=== PATIENT | female | born 1985 | race Caucasian/White ===

== ENCOUNTER 2016-04-30 17:42 | Inpatient (IN) | payer MEDICAID ==
[~2016-04-30] VITALS: Ht 165.1 cm; Wt 106.6 kg
[~2016-04-30 17:42] MED LIST: XANAX2 MG PO
[2016-04-30 18:47] LABS: BASOPHILS 0.4 % (0.0-2.0); EOSINOPHILS 1.6 % (0-7); HEMATOCRIT 38.2 % (36.0-48.0); IMMATURE GRANULOCYTES 0.5 % (0-5); LYMPHOCYTES 28.4 % (15-50); MCH 29.9 pg (26.0-34.0); MCHC 31.4 g/dL (31.0-37.0); MCV 95.3 fL (80.0-100.0); MEAN PLATELET VOLUME 10.1 fL (7.4-10.4); MONOCYTES 7.1 % (2-11); PLATELET COUNT 378 10x3/uL (130-400); RBC 4.01 10x6/uL (4.00-5.40); RDW 14.8 % (11.5-14.5)
[2016-04-30 19:01] LABS: APPEARANCE CLEAR (CLEAR); BILIRUBIN NEGATIVE (NEGATIVE); COLOR YELLOW (YELLOW); GLUCOSE NEGATIVE (NEGATIVE); KETONE NEGATIVE (NEGATIVE); LEUKOCYTE ESTERASE TRACE (NEGATIVE); NITRITE NEGATIVE (NEGATIVE); PROTEIN TRACE mg/dL (NEGATIVE); SPECIFIC GRAVITY 1.015 (1.005-1.020)
[2016-04-30 19:03] LABS: BACTERIA NONE SEEN /hpf (NONE SEEN); EPITHELIAL CELLS 0-5 /hpf (0-5); HCG URINE NEGATIVE (NEGATIVE); MUCUS <1+ /lpf (NONE SEEN); RED CELLS - URINE 0-5 /hpf (0-5); WHITE CELLS - URINE 0-5 /hpf (0-5)
[2016-04-30 19:31] LABS: ALBUMIN 4.1 g/dL (3.4-5.0); ALKALINE PHOSPHATASE 124 U/L (46-116); ALT (SGPT) 928 U/L (10-68); AMYLASE - SERUM 33 U/L (25-115); BILIRUBIN - TOTAL 0.71 mg/dL (0.2-1.3); CALC OSMOLALITY 282 mosm/kg (275-300); CALCIUM 9.7 mg/dL (8.5-10.1); CARBON DIOXIDE 28.8 mmol/L (21.0-32.0); CHLORIDE - SERUM 102 mmol/L (98-107); CREATININE - SERUM 0.6 mg/dL (0.6-1.3); GLUCOSE 115 mg/dL (74-106); LIPASE 121 U/L (73-393); POTASSIUM - SERUM 4.1 mmol/L (3.5-5.1); PROTEIN - SERUM 7.9 g/dL (6.4-8.2); SODIUM 142 mmol/L (136-145); UREA NITROGEN 11 mg/dL (7-18); eGFR NON AFRICAN AMERICAN > 90 mL/min (90-120)
--- NOTE | 2016-04-30 22:49 | NUR ---
RECEIVED TO ROOM 2135VIA W/C FROM ER ALERT AND ORIENTED 30 Y/O FEMALE SEEN BY DR RATLIFF WITH DX OFCOMMON DUCT STONE, CHOLELITHIS. RESP UNLAB ON ROOM AIR, NS @ 100CC/HR VIA PUMP TO LEFT HAND WITH NO R/S NOTED AT SITE. UP AD LESLIE W/O DIFF. VS OBTAINED, WNL. AT BEDSIDE FOR NIGHT. HOB UP SR UP X2, C/L IN REACH. COENTINUE TO MONITOR.
[2016-05-01] VITALS (7 sets, daily range): BP systolic 116–140; BP diastolic 50–82; Ht 165.1 cm; Wt 106.6 kg
[2016-05-01] MEDS ORDERED: AMBIEN10 MG PO (00:04)
[2016-05-01] MEDS ORDERED: NORVASC5 MG PO (00:05)
[2016-05-01] MEDS ORDERED: EFFEXOR75 MG PO (00:06)
--- NOTE | 2016-05-01 01:33 | NUR ---
NPO PER ORDERS, BEAUTY SHOP MANAGER DILADID AT BEDSIDE FOR PAIN CONTROL. C/L IN REACH. CONTINUE TO MONITOR.
--- NOTE | 2016-05-01 03:00 | NUR ---
AWAKE, QUIET IN BED, STATING "I DONT HURT ANY MORE". C/L IN REACH.
[2016-05-01 06:28] LABS: BASOPHILS 0.4 % (0.0-2.0); EOSINOPHILS 0.4 % (0-7); HEMATOCRIT 35.5 % (36.0-48.0); IMMATURE GRANULOCYTES 0.3 % (0-5); MCH 29.6 pg (26.0-34.0); MCV 95.7 fL (80.0-100.0); MEAN PLATELET VOLUME 10.3 fL (7.4-10.4); MONOCYTES 9.4 % (2-11); NEUTROPHILS 62.5 % (40-80); PLATELET COUNT 352 10x3/uL (130-400); RBC 3.71 10x6/uL (4.00-5.40); RDW 14.9 % (11.5-14.5)
[2016-05-01 06:43] LABS: WBC 6.8 10x3/uL (4.8-10.8)
[2016-05-01 07:03] LABS: CALC OSMOLALITY 285 mosm/kg (275-300); CARBON DIOXIDE 28.7 mmol/L (21.0-32.0); CHLORIDE - SERUM 105 mmol/L (98-107); CHOL - HDL RATIO 5.5 ratio (2.3-4.1); CHOLESTEROL, TOTAL 220 mg/dL (0-200); CREATININE - SERUM 0.7 mg/dL (0.6-1.3); GLUCOSE 139 mg/dL (74-106); HDL CHOLESTEROL 40 mg/dL (32-96); LDL CHOLESTEROL 159 mg/dL (0-100); POTASSIUM - SERUM 4.4 mmol/L (3.5-5.1); SODIUM 143 mmol/L (136-145); TRIGLYCERIDE 106 mg/dL (30-200); UREA NITROGEN 9 mg/dL (7-18); eGFR NON AFRICAN AMERICAN > 90 mL/min (90-120)
--- NOTE | 2016-05-01 07:20 | NUR ---
LAYING IN BED WITH MALE MEMBER IN BED WITH HER. DENIES NEEDS AT PRESENT TIME. NPO STATUS, THIS IS RE-INFORCED. STATES TO UNDERSTAING OF THIS. IV OF D5NS INFUSING TO LEF THAND AT 100 CC/HR ALONG WITH BAR USEFUL OR BUSSER DILAUDID WITH SETTINGS 0.2/01/24. WILL CONTINUE TO MONITOR.
--- NOTE | 2016-05-01 08:55 | NUR ---
PATIENT UP TO SINK FOR AM CARE. STILL NPO STATUS, MEDS GIVEN WITH SIP OF WATER. PATIENT REPORTS THAT SHE IS HAVING SURGRY TODAY, INFORMED HER THAT AT THIS PRESENT TIME WE DO NOT HAVE ORDERS BUT THAT IT MAY CHANGE SOON. WILL CONTINUE TO MONITOR.
--- NOTE | 2016-05-01 09:37 | NUR ---
PATIENT IS NOW ON EP, LAB VALUES ARE NORMAL.
--- NOTE | 2016-05-01 11:04 | NUR ---
TO RADIOLOGY VIA WHEELCHAIR FOR GALLBLADDER SCAN. UA SENT FOR UDS ORDERED.
[2016-05-01 11:22] LABS: APTT 27.8 SECONDS (22.8-39.4); INR 0.98 (0.85-1.17); PROTIME 12.8 SECONDS (11.6-15.0)
[2016-05-01 11:31] LABS: ALBUMIN 3.5 g/dL (3.4-5.0); BILIRUBIN - DIRECT 0.56 mg/dL (0.00-0.30); BILIRUBIN - INDIRECT 0.44 mg/dL (0.00-1.00); PROTEIN - SERUM 7.3 g/dL (6.4-8.2)
[2016-05-01 11:50] LABS: UDS - AMPHET NEGATIVE QUAL (NEGATIVE); UDS - BARB NEGATIVE QUAL (NEGATIVE); UDS - BENZO NEGATIVE QUAL (NEGATIVE); UDS - COCAINE NEGATIVE QUAL (NEGATIVE); UDS - METH NEGATIVE QUAL (NEGATIVE); UDS - OPIATE POSITIVE QUAL (NEGATIVE); UDS - PCP NEGATIVE QUAL (NEGATIVE); UDS - THC NEGATIVE QUAL (NEGATIVE)
--- NOTE | 2016-05-01 13:29 | NUR ---
REMOVING SUTURES TO BILATERAL LULA DRAINS, REMOVED ORDERED. COVERED WITH CLEAN 4 X 4, AND TAPE. TOLERATED WELL.
--- NOTE | 2016-05-01 14:14 | NUR ---
OP PERMITS ARE SIGNED AND SURGICAL BATH AND LINEN CHANGE DONE. STILL NPO. HERE AT BEDSIDE.
--- NOTE | 2016-05-01 14:25 | NUR ---
RATIONALE FOR SCD'S EXPLAINED. REFUSED SCD'S
--- NOTE | 2016-05-01 14:30 | NUR ---
CALLED TO ROOM PATIENT WAS THROWING UP AND STARTING TO ITCH ON ABDOMINAL AREA AND IN PELVIS/GROIN. NO RASH IS SEEN. CALL PLACED TO DR CLARK IN SURGERY FOR ORDER OF LORIEL.
--- NOTE | 2016-05-01 15:23 | NUR ---
TO OR VIA BED.
--- NOTE | 2016-05-01 16:48 | CN ---
PATIENT NAME:MAX AN MEDICAL RECORD: [id number] : 89 LOCATION:D. D.2136 ADMIT DATE: 04/30/16 ACCOUNT: [id number] CONSULTING PHYSICIAN: LING CLARK MD REFERRING PHYSICIAN: RAUL RATLIFF MD DATE OF CONSULTATION: 05/01/2016 Surgical Consultation SURGEON: Ling Clark MD REASON FOR CONSULTATION: Right upper quadrant pain. HISTORY OF PRESENT ILLNESS: This is a 30-year-old female who was in the hospital yesterday for acute onset of right upper quadrant epigastric pain 2 days ago. The patient states the pain has been constant since it started. She describes it as sharp and stabbing. It radiates around to the center point of her back. It was associated with nausea. She denies any episodes of vomiting, fever, chills at home. Denies any episodes of hematuria, dysuria or change in color of her stool or urine. She says she never had the previous attacks or similar episodes of right upper quadrant pain. PAST MEDICAL HISTORY: Obesity, hypertension, pituitary adenoma and polysubstance drug abuse. PAST SURGICAL HISTORY: None. FAMILY HISTORY: Father at the age of 50 from a heart attack. Mother had ovarian cancer and ulcerative colitis. ALLERGIES: PENICILLIN. HOME MEDICATIONS: Effexor, Norvasc, Ambien. SOCIAL HISTORY: , no children. Smokes half a pack of cigarettes daily. REVIEW OF SYSTEMS: A 12-point review of systems was obtained. Pertinent positives and negatives as per the HPI. PHYSICAL EXAMINATION: VITAL SIGNS: Temperature 98.4, heart rate 61, respiratory rate 18, blood pressure 140/80, satting 95% on room air. GENERAL: This is a well-developed and well-nourished obese female in moderate distress. PSYCHIATRIC: She is alert and oriented times 3. EYES: Extraocular muscles are intact. EAR, NOSE AND THROAT: Mucous membranes are dry. She has got poor dentition. CARDIOVASCULAR: Normal sinus rhythm. LUNGS: She is clear to auscultation bilaterally. ABDOMEN: Soft, nondistended, she has got moderate right upper quadrant tenderness to palpation, localized guarding. Normoactive bowel sounds. EXTREMITIES: She is neurovascularly intact with normal cap refill. SKIN: Warm and dry with normal turgor. NEUROLOGIC: She has a GCS of 15 with no focal deficits. CONSULT REPORT [id number] MAX AN LABORATORY DATA: White count 6800, hemoglobin 11, hematocrit 35.5, platelet count 352. Chemistry: Sodium 143, potassium 3.4, chloride 105, carbon dioxide is 28.7, BUN 9, creatinine 0.7, glucose 139. Calcium 9. Bilirubin 1, direct bilirubin 0.56. AST 717, ALT 1125. IMAGING: Her CT of the abdomen and pelvis was personally reviewed. She has got a dilated common bile duct and markedly contracted gallbladder. I ordered an MRCP earlier this morning, which the images were also reviewed, which shows an enlarged common bile duct with no obvious obstruction. No stones. IMPRESSION: A 30-year-old female with chronic cholecystitis and cholelithiasis. PLAN: 1. The patient has been admitted to the medicine floor. Continue IV fluid resuscitation. 2. Continue IV narcotics for pain control. 3. Start IV antibiotics. 4. Obtain consent for laparoscopic cholecystectomy. Risks and benefits of the procedure were discussed with the patient. 5. OR later today for laparoscopic cholecystectomy. TRANSINT:[id number] Voice Confirmation ID: [id number] DOCUMENT ID: [id number] LING CLARK MD at 1648 CC: [id number] DICTATION DATE: 05/01/161427 HOGSHEAD STRIPPER: 05/01/16 1451 ADM IN [facility] [address] [id number]
--- NOTE | 2016-05-01 17:41 | NUR ---
1740-RETURNS FROM RECOVERY ROOM WITH 4 SMALL INCISIONS WITH STERI-STRIPS SEEN. ON 4L PER NC. WILL MONITOR.
--- NOTE | 2016-05-01 20:08 | NUR ---
RECEIVED REPORT, ASSIST TO RESTROOM, 02-3L, LFA-D5NS @ 100, AT BEDSIDE, CALL LIGHT IN REACH,
[2016-05-02] VITALS: BP 130/83
[2016-05-02 04:00] VITALS: BP 120/76
--- NOTE | 2016-05-02 04:50 | NUR ---
PT LAYING IN BED NO DISTRESS OBSERVED CALL LIGHT IN REACH SRX2 BED LOW AND LOKCED WILL MONITOR
--- NOTE | 2016-05-02 04:57 | NUR ---
SLEEPING, AT BEDSIDE, CALL LIGHT IN REACH, BED IS LOW,SRX2
[2016-05-02 06:18] LABS: BASOPHILS 0.2 % (0.0-2.0); EOSINOPHILS 0.1 % (0-7); HEMATOCRIT 38.3 % (36.0-48.0); HEMOGLOBIN 11.7 g/dL (12-16); IMMATURE GRANULOCYTES 0.5 % (0-5); LYMPHOCYTES 23.9 % (15-50); MCH 29.1 pg (26.0-34.0); MCHC 30.5 g/dL (31.0-37.0); MCV 95.3 fL (80.0-100.0); MEAN PLATELET VOLUME 10.4 fL (7.4-10.4); MONOCYTES 9.5 % (2-11); NEUTROPHILS 65.8 % (40-80); PLATELET COUNT 314 10x3/uL (130-400); RBC 4.02 10x6/uL (4.00-5.40); RDW 14.9 % (11.5-14.5); WBC 8.1 10x3/uL (4.8-10.8)
[2016-05-02 06:43] LABS: ALBUMIN 3.6 g/dL (3.4-5.0); ALKALINE PHOSPHATASE 123 U/L (46-116); CALCIUM 9.2 mg/dL (8.5-10.1); CARBON DIOXIDE 30.8 mmol/L (21.0-32.0); CHLORIDE - SERUM 102 mmol/L (98-107); CREATININE - SERUM 0.8 mg/dL (0.6-1.3); GLUCOSE 108 mg/dL (74-106); POTASSIUM - SERUM 4.3 mmol/L (3.5-5.1); PROTEIN - SERUM 7.2 g/dL (6.4-8.2); SODIUM 142 mmol/L (136-145); eGFR NON AFRICAN AMERICAN 90 mL/min (90-120)
[2016-05-02 06:45] LABS: ALT (SGPT) 1118 U/L (10-68); CALC OSMOLALITY 281 mosm/kg (275-300); UREA NITROGEN 6 mg/dL (7-18)
--- NOTE | 2016-05-02 07:30 | NUR ---
0700-LAYING IN BED WITH SPOUSE DURING SHIFT CHANGE. DENIES NEEDS AT PRESENT TIME, STATES TO AMBULATING HALLWAY LAST SHIFT. PASSING FLATUS BUT NO BM AT PRESENT TIME. IV INFUSING TO HAND OF D 5 1/2 NS AT 125 CC/HR. PATIENT REPORTS TO DRINKING FLUIDS LAST NIGHT. ON ROOM AIR. WILL CONTINUE TO MONITOR.
--- NOTE | 2016-05-02 07:50 | NUR ---
PCT MAKING VITAL ROUNDS THIS AM. REPORTS TO ME THAT HER 02 LEVEL IS 85 ON ROOM AIR AND REFUSES TO WEAR OXYGEN. I WENT IN AND ASKED PATIENT TO PLEASE COUGH AND DEEP BREATH, USING THE SPLINTING EFFECT WITH BRACING HER STOMACH WHEN SHE COUGHS. IS IN THE BED WITH HER STILL. I INFORMED THE PATIENT THAT IF IT DIDN'T COME UP IN JUST A BIT THAT WE WILL HAVE TO PLACE 02 BACK ON HER FOR A BIT. WILL CONTINUE TO MONITOR.
[2016-05-02 08:07] VITALS: BP 119/79
--- NOTE | 2016-05-02 08:14 | OP ---
PATIENT NAME: MAX AN MEDICAL RECORD: [id number] :[birth year] LOCATION:D. D.2136 ADMISSION DATE:04/30/16 SURGEON: LING CLARK MD DATE OF OPERATION: 05/01/2016 SURGEON: Ling Clark MD PREOPERATIVE DIAGNOSIS: Chronic cholecystitis. POSTOPERATIVE DIAGNOSIS: Chronic cholecystitis. PROCEDURE PERFORMED: Laparoscopic cholecystectomy. ANESTHESIA: General. COMPLICATIONS: None. SPECIMENS: Gallbladder. Case is clean contaminated. ESTIMATED BLOOD LOSS: 40 cc. OPERATIVE COURSE: After consent was obtained, the patient was taken to the operating room and placed in the supine position on the operating table. Next, general anesthesia was given via endotracheal intubation after a timeout was performed to confirm the correct patient and procedure. The abdomen was then prepped and draped in typical sterile fashion. Local anesthetic was injected just above the umbilicus. A stab incision was made with 11-blade scalpel. Using a 5-mm bladeless optical trocar, the abdomen was entered under direct laparoscopic vision. Adequate pneumoperitoneum was achieved. The abdominal cavity was inspected. No evidence of bowel injury. No evidence of bleeding. The patient was then placed in the steep reverse Trendelenburg position. All remaining trocars were placed after the administration of local anesthetic, two 5-mm trocars in the right upper quadrant and 11-mm trocar in the subxiphoid position. The fundus of the gallbladder was grasped and retracted cephalad. The infundibulum was grasped and retracted laterally. The peritoneum was incised using electrocautery. Blunt dissection was then performed until the critical view was obtained. The cystic duct lateral, cystic artery medial, liver in a posterior window. Two clips were placed in the proximal cystic artery. Three clips were then placed in the proximal cystic duct, 1 clip distal. The duct and artery were transected with laparoscopic Metzenbaum scissors. The remaining portion of the gallbladder was taken from the liver bed using electrocautery. Once complete, it was grasped with the tenaculum and removed through the 11-mm trocar and sent for permanent pathology. The operative site was copiously irrigated and suctioned. Careful attention was paid to hemostasis, which was obtained from the liver bed with electrocautery. The operative site was inspected. There were [address] in the cystic duct, 2 clips were placed in the cystic artery. There was no evidence of bowel injury. No evidence of bleeding, no evidence of bile leak. The abdominal cavity was inspected. No evidence of bowel injury. No evidence of bleeding. At this time, all remaining instruments were removed. The abdomen was desufflated. Trocars were removed. Skin was closed with 4-0 Monocryl, Mastisol and Steri-Strips. At the end of the case, all needle and instrument counts were correct. No complications occurred. The patient was extubated and transferred OPERATIVE REPORT [id number] MAX AN to the PACU in stable condition. TRANSINT:[id number] Voice Confirmation ID: [id number] DOCUMENT ID: [id number] LING CLARK MD at 0814 CC: [id number] DICTATION DATE: 05/01/16 165 EDUCATIONAL CONSULTANT: 05/01/16 1908 ADM IN [facility] [address] [place] [address]
[2016-05-02] MEDS ORDERED: HYDROCODON-ACE1 EAC7 PO (08:31)
[2016-05-02 09:18] LABS: HEPATITIS C ANTIBODY <0.1 (0.0-0.9)
--- NOTE | 2016-05-02 09:38 | NUR ---
PATIENT BEEN UP AMBULATING IN HALLWAY WITH . TORADOL GIVEN SLOW IVP FOR PAIN REQUESTED. DULCOLOX SUPP ALSO GIVEN, INSTRUCTED TO HOLD LONG POSSIBLE AND TO CALL ME IF ANY RESULTS. STATES TO UNDERSTANDING.
--- NOTE | 2016-05-02 12:07 | NUR ---
PATIENT HAD SCANT AMOUNT OF STOOL.
[2016-05-02 12:14] VITALS: BP 136/80
--- NOTE | 2016-05-02 12:44 | NUR ---
SALINE LOCK REMOVED WITH CATH TIP INTACT. VERBAL AND WRITTEN DISCHARGE INSTRUCITONS GIVEN TO PATIENT AND SPOUSE. DISCHARGED HOME VIA WHEELCHAIR.
--- NOTE | 2016-05-02 14:22 | NUR ---
Patient Name: MAX AN Admission Status: ER Accout number: [id number] Admission Date: 04-30-2016 : 1985 Admission Diagnosis:CHOLECYSTITIS, UNSPECIFIED Attending: SEBASTIEN Current LOS: 2 Anticipated DC Date: 05-02-2016 Planned Disposition: Home Primary Insurance: MEDICAID [place] Discharge Planning Comments: * Is the patient Alert and Oriented? Yes 0 * How many steps to enter\exit or inside your home? 20 0 * PCP DR. LUCAS 0 * Pharmacy [facility] 0 * Preadmission Environment Home with Family 0 * ADLs Independent 0 * Equipment None 0 * Other Equipment NO MEDICAL EQUIPMENT PROVIDER PREFERENCE 0 * List name and contact numbers for known caregivers / representatives who currently or will assist patient after discharge: LETTY VALENCIA, SPOUSE, 0 * Community resources currently utilized None 0 * Please name any agencies selected above. NONE 0 * Additional services required to return to the preadmission environment? No 0 * Can the patient safely return to the preadmission environment? Yes 0 * Has this patient been hospitalized within the prior 30 days at any hospital? No 0 CM MET WITH PT IN ROOM TO DISCUSS DISCHARGE PLANNING AND NEEDS. PT REPORTS LIVING AT HOME INDEPENDENTLY WITH SPOUSE. PT HAS NO MEDICAL EQUIPMENT AND NO OUTSIDE SERVICES ASSISTING IN THE HOME. CM DISCUSSED AVAILABILITY OF HOME HEALTH, REHAB SERVICES AND MEDICAL EQUIPMENT. PT DENIES DISCHARGE NEEDS, REPORTS HER SPOUSE WILL PICK HER UP FOR DISCHARGE HOME. Dual Rate Dealer: Andriy Aguilar
--- NOTE | 2016-05-22 06:10 | HP ---
PATIENT: MAX AN MEDICAL RECORD: [id number] ACCOUNT: [id number] LOCATION:[address] : [birth year] ADMISSION DATE: 04/30/16 HISTORY AND PHYSICAL EXAMINATION REASON FOR ADMISSION: Abdominal pain. HISTORY OF PRESENT ILLNESS: The patient is a 30-year-old female who states she has had postprandial dyspepsia for several years. She had a severe episode last evening that made her come to the Emergency Room, she had epigastric discomfort radiating up into her back. It was nonrelenting. She had abdominal bloating as well. No vomiting. Symptoms gradually improved in the ER with analgesics. She states she was unable to digest her food for the last week. Every time she would eat, she would have to stick her finger down her throat to make herself throw up. Denies fever, change in stools, or blood per rectum. Denies any history of previous liver disease or hepatitis. PAST MEDICAL HISTORY: Essential hypertension, pituitary adenoma for which she is amenorrheic, exogenous obesity, polydrug abuse in the past, hospitalized in this hospital December 2015 for benzodiazepine overdose. PAST SURGICAL HISTORY: Negative. FAMILY HISTORY: Father of [place] at 50. Mother with history of ovarian cancer and ulcerative colitis. She has no siblings. ALLERGIES: PENICILLIN CAUSING RASH. HOME MEDICATIONS: Effexor 75 mg daily, Norvasc 10 mg a day, Ambien 10 mg at bedtime for sleep. SOCIAL HISTORY: She is , has no children. 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 She smokes half pack of cigarettes a day for several years. Does not drink heavy alcohol, admitted to polydrug abuse in the past, none recently REVIEW OF SYSTEMS: GENERAL: No weight loss, fever or fatigue. HEENT: No recent visual change, sinus congestion, or sore throat. RESPIRATORY: No SOB or cough. CARDIAC: No exertional chest pain, claudication or edema. GASTROINTESTINAL: She has had nausea last week with eating and severe episode of epigastric pain as mentioned above. Denies any change in stools or blood per rectum. CARDIAC: No exertional chest pain. GYNECOLOGICAL: No vaginal bleeding. She is amenorrheic. [place]. MUSCULOSKELETAL: No arthralgias. GENITOURINARY: No dysuria, incontinence or dysuria. GYNECOLOGICAL: No vaginal bleeding. PSYCHIATRIC: Denies depressed mood. MUSCULOSKELETAL: Denies arthralgias. PHYSICAL EXAMINATION: VITAL SIGNS: Temperature 98.7 Fahrenheit, pulse 78 and regular, respirations 21, blood pressure 144/93, and sats 99% on room air. HISTORY AND PHYSICAL [id number] MAX AN GENERAL: Alert and oriented. HEENT: Eyes are clear. Oropharynx unremarkable. NECK: No bruits or masses. CHEST: Clear. HEART: Regular without murmur. ABDOMEN: Obese, soft, tender in the epigastric and right upper quadrant without rebound. Bowel sounds are active. RECTAL: No stool in the vault. EXTREMITIES: No CC&E. SKIN: Nonicteric. Good turgor. Shows multiple tattoos. NEUROLOGIC: Oriented to person, place, and time. Cranial nerves intact. Gait normal. No localizing motor deficits appreciated. LABORATORY RESULTS: Amylase and lipase were normal. AST is 512, ALT is 928, alkaline phosphatase is 124, bilirubin is 0.71. Glucose is 115, nonfasting. Potassium 4.1. Urinalysis unremarkable. White count 10,000, H&H of 12 and 38.2 respectively. Triglycerides are 106, cholesterol of 228, LDL 159. Urinalysis: Trace leukocyte esterase. Urine beta hCG is negative. IMAGING: CT abdomen and pelvis shows hepatomegaly and fatty liver. Gallbladder is contracted with distention of the common bile duct, small calculus in the distal common bile duct at the ampulla of Vater. Assessment: 1. Acute abdominal pain due to choledocholithiasis. 2. Fatty liver. 3. Hypertension. 4. History of pituitary adenoma and amenorrhea. 5. Depression. 6. Polydrug abuse history. 7. Smoker. PLAN: The patient admitted and held n.p.o. for surgical and GI consultation. TRANSINT:[id number] Voice Confirmation ID: [id number] DOCUMENT ID: [id number] RAUL RATLIFF MD at 0610 CC: [id number] DICTATION DATE: 05/01/16 0753 TELEPHONE BETTING CLERK: 05/01/16 0844 DIS IN 05/02/16 [place] [address]
--- NOTE | 2016-06-11 22:03 | DS ---
PATIENT:MAX AN :89 MEDICAL RECORD: [id number] DISCHARGE SUMMARY ADMISSION DATE: 04/30/16 DISCHARGE DATE: 05/02/16 CONSULTANTS: Yonas Nieto MD, General Surgery. DISCHARGE DIAGNOSES: Choledocholithiasis, acute abdominal pain and fatty liver. PROCEDURE PERFORMED: Laparoscopic cholecystectomy on 05/01/2016. HOSPITAL COURSE: A ____-asmb-rdy female, who presented with postprandial dyspepsia for several years with severe episode in the evening before admission with some abdominal pain radiating into her upper back. It was nonrelenting. On admission, she had mild elevation of her liver transaminases, white count was 10,000, H&H of 12 and 38. Beta hCG was negative. CT abdomen and pelvis showed hepatomegaly, fatty liver and gallbladder was contracted with distention of the common bile duct, small calculus in the distal common bile duct at the ampulla of Vater. Dr. Nieto was consulted and he felt laparoscopic cholecystectomy is indicated and proceeded with that the following day. The patient tolerated the procedure well, was discharged on May [address] Nieto's recommendation. DISCHARGE MEDICATIONS: Hydrocodone 5/325, one q. 4 hours for pain, Ambien 10 mg at h.s. for sleep, Norvasc 5 mg daily, and Effexor 75 mg daily. DIET: Low fat. ACTIVITY: As per Dr. Nieto. FOLLOWUP: Return to clinic to see me p.r.n. and Dr. Nieto per his order. TRANSINT:[id number] Voice Confirmation ID: [id number] DOCUMENT ID: [id number] RAUL RATLIFF MD at 2203 CC: [id number] DICTATION DATE: 06/09/16 1319 EVP BUSINESS DEVELOPMENT: 06/10/16 0645 DIS IN 05/02/16 [place] [address]
== END 2016-05-02 12:48 | disposition home or self-care (01) | DRG 419 ==
LOC: D.ER 17:42 → D.M2 21:41
PROVIDERS: Family Medicine; Nurse Practitioner Acute Care; Surgery; ADMIT Family Medicine
PROC: 0FT44ZZ Resection of Gallbladder, Percutaneous Endoscopic Approach (ICD-10-PCS; principal; 2016-05-01 15:00)
DX: K80.20 Calculus of gallbladder without cholecystitis without obstruction (principal); I10 Essential (primary) hypertension; E66.9 Obesity, unspecified; Z68.39 Body mass index [BMI] 39.0-39.9, adult; D35.2 Benign neoplasm of pituitary gland; F19.94 Other psychoactive substance use, unspecified with psychoactive substance-induced mood disorder

== ENCOUNTER 2017-07-22 10:15 | Emergency (ER) | payer MEDICAID ==
[2016-05-01 13:42] VITALS: BMI 39.1
[~2017-07-22 10:15] MED LIST changes: +AMBIEN10 MG PO; +EFFEXOR75 MG PO; +HYDROCODON-ACE1 EAC7 PO; +NORVASC5 MG PO
== END 2017-07-22 12:25 | disposition home or self-care (01) ==
LOC: D.ER 10:15
DX: L02.416 Cutaneous abscess of left lower limb (principal); F17.200 Nicotine dependence, unspecified, uncomplicated

== ENCOUNTER 2017-07-25 17:20 | Emergency (ER) | payer MEDICAID ==
[2016-05-01 13:42] VITALS: BMI 39.1
== END 2017-07-25 19:07 | disposition home or self-care (01) ==
LOC: D.ER 17:20
DX: L02.416 Cutaneous abscess of left lower limb (principal)

== ENCOUNTER 2018-03-05 14:45 | Emergency (ER) | payer SELFPAY ==
[~2018-03-05] VITALS: Ht 165.1 cm; Wt 117.3 kg
[2018-03-05 15:01] VITALS: Ht 165.1 cm; Wt 117.3 kg
[2018-03-05] MEDS ORDERED: PRINZIDE 20/12.1 TA1 PO (15:02)
[2018-03-05] MEDS ORDERED: CABERGOLINE0.5 MG PO (15:03)
[2018-03-05] MEDS ORDERED: GLUCOPHAGE500 MG PO (15:03)
[2018-03-05] MEDS ORDERED: CLEOCIN HCL300 MG PO (16:33)
[2018-03-05] MEDS ORDERED: VOLTAREN75 MG PO (16:33)
[2018-03-05 16:49] VITALS: BP 126/74
== END 2018-03-05 16:49 | disposition home or self-care (01) ==
LOC: D.ER 14:45
DX: L03.116 Cellulitis of left lower limb (principal); I10 Essential (primary) hypertension; F17.200 Nicotine dependence, unspecified, uncomplicated

== ENCOUNTER 2018-06-13 18:23 | Emergency (ER) | payer SELFPAY ==
[~2018-06-13] VITALS: Ht 165.1 cm; Wt 117.3 kg
[~2018-06-13 18:23] MED LIST changes: +CABERGOLINE0.5 MG PO; +CLEOCIN HCL300 MG PO; +GLUCOPHAGE500 MG PO; +PRINZIDE 20/12.1 TA1 PO; +VOLTAREN75 MG PO
[2018-06-13 18:28] VITALS: Ht 165.1 cm; Wt 117.3 kg
[2018-06-13 18:58] LABS: BASOPHILS 0.5 % (0-2); EOSINOPHILS 2.5 % (0-7); HEMATOCRIT 38.3 % (36.0-48.0); HEMOGLOBIN 12.3 g/dL (12-16); IMMATURE GRANULOCYTES 0.4 % (0-5); MCH 28.9 pg (26.0-34.0); MCHC 32.1 g/dL (31.0-37.0); MCV 89.9 fL (80.0-100.0); MEAN PLATELET VOLUME 9.8 fL (7.4-10.4); MONOCYTES 8.9 % (2-11); NEUTROPHILS 54.7 % (40-80); RBC 4.26 10x6/uL (4.00-5.40); RDW 14.7 % (11.5-14.5); WBC 7.9 10x3/uL (4.8-10.8)
[2018-06-13 19:00] LABS: PLATELET COUNT 386 10x3/uL (130-400)
[2018-06-13 19:03] LABS: APPEARANCE CLEAR (CLEAR); COLOR YELLOW (YELLOW); GLUCOSE NEGATIVE (NEGATIVE); NITRITE NEGATIVE (NEGATIVE); PROTEIN TRACE mg/dL (NEGATIVE)
[2018-06-13 19:04] LABS: BILIRUBIN NEGATIVE (NEGATIVE); KETONE NEGATIVE (NEGATIVE); UROBILINOGEN NORMAL (NORMAL)
[2018-06-13 19:05] LABS: AMORPHOUS SEDIMENT <1+ /lpf (NONE SEEN); BACTERIA FEW /hpf (NONE SEEN); MUCUS >1+ /lpf (NONE SEEN); RED CELLS - URINE 0-5 /hpf (0-5); WHITE CELLS - URINE 0-5 /hpf (0-5)
[2018-06-13 19:12] LABS: ALBUMIN 3.9 g/dL (3.4-5.0); ALKALINE PHOSPHATASE 66 U/L (46-116); ALT (SGPT) 104 U/L (10-68); BILIRUBIN - TOTAL 0.27 mg/dL (0.2-1.3); CALC OSMOLALITY 276 mosm/kg (275-300); CALCIUM 8.6 mg/dL (8.5-10.1); CARBON DIOXIDE 22.3 mmol/L (21.0-32.0); CHLORIDE - SERUM 102 mmol/L (98-107); CREATININE - SERUM 0.6 mg/dL (0.6-1.3); GLUCOSE 115 mg/dL (74-106); POTASSIUM - SERUM 3.9 mmol/L (3.5-5.1); PROTEIN - SERUM 8.6 g/dL (6.4-8.2); SODIUM 137 mmol/L (136-145); UREA NITROGEN 18 mg/dL (7-18); eGFR NON AFRICAN AMERICAN > 90 mL/min (90-120)
[2018-06-13 19:34] LABS: HCG SERUM NEGATIVE (NEGATIVE)
[2018-06-13] MEDS ORDERED: TORADOL10 MG PO (20:40)
[2018-06-13] MEDS ORDERED: ZOFRAN8 MG PO (20:40)
[2018-06-13 21:29] VITALS: BP 142/79
== END 2018-06-13 21:29 | disposition home or self-care (01) ==
LOC: D.ER 18:23
PROVIDERS: Emergency Medicine
DX: R10.31 Right lower quadrant pain (principal); E11.9 Type 2 diabetes mellitus without complications; I10 Essential (primary) hypertension; F17.200 Nicotine dependence, unspecified, uncomplicated